=== PATIENT | male | born 1975 | race Caucasian/White ===

== ENCOUNTER → 2023-06-08 | Outpatient (CLI) | payer BC ==
[~2023-06-08] VITALS: Ht 175.3 cm; Wt 95.0 kg
[2023-06-08] VITALS (15 sets, daily range): BP systolic 110–130; BP diastolic 71–84; PULSE 74–92; TEMP 97.7
[~2023-06-08] MED LIST: LEXAPRO 10MG10 MG PO; Midazolam 2 MG/2 ML VIAL IV SCH; OXY IR5 MG PO; fentaNYL 50 MCG/ML 2 ML VIAL IV SCH
[2023-06-08 08:31] LABS: BASO % 0.7 % (0.0-2.0); EOS # 0.1 K/mm3 (0.0-0.7); EOS % 1.8 % (0.0-4.0); GRAN # 3.3 K/mm3 (1.4-6.5); GRAN % 72.2 % (42.2-75.2); HEMATOCRIT 41.5 % (42.0-52.0); HEMOGLOBIN 13.1 g/dl (13.5-18.0); LYMPH # 0.8 K/mm3 (1.2-3.4); LYMPH % 17.6 % (20.0-51.0); MEAN CELL VOLUME 86 fl (80.0-100.0); MEAN CORPUSCULAR HEMOGLOBIN 27 pg (27-31); MEAN CORPUSCULAR HGB CONC 32 g/dl (33.0-37.0); MEAN PLATELET VOLUME 9.4 fl (7.4-10.4); MONO # 0.3 K/mm3 (0.1-0.6); MONO % 7.5 % (1.7-9.3); PLATELET COUNT 128 K/mm3 (130-400); RED BLOOD COUNT 4.81 M/mm3 (4.20-5.60); REDCELL DISTRIBUTION WIDTH-CV 13.6 % (11.5-14.5)
[2023-06-08 08:56] LABS: ERYTHROCYTE SEDIMENTATION RATE 12 mm/hr (0-15)
[2023-06-08 09:11] LABS: ALBUMIN 4.1 g/dL (3.5-5.0); BILIRUBIN,TOTAL 0.6 mg/dL (0.2-1.2); CALCIUM 9.6 mg/dL (8.4-10.2); CREATININE, serum 1.11 mg/dL (0.72-1.25); URIC ACID 7.6 mg/dL (3.5-7.2)
== END ==
LOC: COL.RAD 07:56
PROVIDERS: Internal Medicine
DX: R59.1 Generalized enlarged lymph nodes (principal)
CPT/HCPCS: J2250; J3010

== ENCOUNTER 2023-06-20 11:58 | Day surgery (SDC) | payer BC ==
[~2023-06-20] VITALS: Ht 175.3 cm; Wt 63.6 kg
[~2023-06-20 11:58] MED LIST changes: +LR 1,000 ML IV SCH; -Midazolam 2 MG/2 ML VIAL IV SCH; -fentaNYL 50 MCG/ML 2 ML VIAL IV SCH
[2023-06-20 12:23] VITALS: BP 118/84; PULSE 81; TEMP 97.9
[2023-06-20] MEDS ORDERED: ZYLOPRIM 300MG300 MG PO (12:51)
[2023-06-20] MEDS ORDERED: PROTONIX 40MG T40 MG PO (12:51)
[2023-06-20] MEDS ORDERED: MULTI VITAMINS1 TAB PO (12:52)
[2023-06-20] MEDS ORDERED: fentaNYL 50 MCG/ML 2 ML VIAL ONE (13:18)
--- NOTE | 2023-06-20 13:18 | NUR ---
48 YEAR OLD MALE ADMITTED TO ROOM 7 ACCOMPANIED BY SPOUSE AND ORIENTED TO ROOM. VOICES UNDERSTANDING OF SURGERY AND CONSENT SIGNED. READIED FOR SURERY. DR. LINTON IN THE ROOM AND TALKS WITH THE PATIENT. ALL QUESTIONS ANSWERED. SIDERAILS UP X2 AND CALL LIGHT IN REACH. SPOUSE IN ROOM.
[2023-06-20] MEDS ORDERED: Topical Skin Adhesive 1 EACH (1 ML) TOP ONE (13:47)
[2023-06-20 14:12] VITALS: BP 107/61; PULSE 72; TEMP 98.3
--- NOTE | 2023-06-20 14:12 | NUR ---
The patient arrived back to [facility] from the operating room at this time. The patient appears alert and oriented and denies any pain or nausea at this time. The patient agrees to try a muffin and water at this time. Post operative vital signs were started at this time. The patient's incision is covered with surgical glue and without redness or edema. The patient's is at his bedside at this time. Call light is within reach. Denies any further needs at this time.
[2023-06-20 14:27] VITALS: BP 103/52; PULSE 75
--- NOTE | 2023-06-20 14:27 | NUR ---
The patient appears to be tolerating the food and drink well. remains at his bedside. Vital signs appear stable.
[2023-06-20] MEDS ORDERED: Acetaminophen 325 MG TAB PO PRN (14:30)
[2023-06-20] MEDS ORDERED: Ibuprofen 600 MG TAB PO PRN (14:30)
[2023-06-20] MEDS ORDERED: Ondansetron 4 MG/2 ML VIAL IV PRN (14:30)
[2023-06-20 14:42] VITALS: BP 113/70; PULSE 72
--- NOTE | 2023-06-20 14:42 | NUR ---
The patient's IV to his left hand was removed and a pressure dressing was applied to the site. The nurse instructed the patient to get dressed and notify the staff when he is ready to review his discharge paperwork and be escorted out.
--- NOTE | 2023-06-20 14:55 | NUR ---
Discharge instructions were reviewed with the patient and his at this time. They both verbalized understanding and have no questions for the nurse at this time. The patient is dresed and was escorted out to a private vehicle via wheelchair by LISY Contreras. The patient's belongings and discharge paperwork were sent with him. The patient's is present to drive him home.
== END 2023-06-20 14:55 | disposition home or self-care (01) ==
LOC: SDCO 11:58
DX: C82.95 Follicular lymphoma, unspecified, lymph nodes of inguinal region and lower limb (principal); R16.1 Splenomegaly, not elsewhere classified; R16.0 Hepatomegaly, not elsewhere classified; K21.9 Gastro-esophageal reflux disease without esophagitis
CPT/HCPCS: C1788; J0690; J1644; J2704; J3010; J7120